=== PATIENT | female | born 1985 | race American Indian/Alaskan Native ===

== ENCOUNTER 2017-01-16 14:40 | Emergency (ER) | payer MEDICAID ==
--- NOTE | 2017-01-16 15:33 | Emergency Department Report ---
Chief Complaint: Extremity Injury, Lower Stated Complaint: LOW BACK PAIN/KNEE AND LEG PAIN Time Seen by Provider: 01/16/17 15:30 - HPI History of Present Illness: PT c/o L foot/ ankle pain (hx of club foot repair) PT also c/o mid low back pain PT denies injury or trauma. PT has a hx of scoliosis and spina bifida - ROS Review of Systems: - abd pain - irregular menstrual cycle + low back pain - Exam Physical Exam: PT c/o shar hip pain and L foot pain, she is ambulatory with steady gait. PT has scar to L medial ankle MSE screening note: Focused history and physical exam performed. Due to findings the following was ordered: labs ED Disposition for MSE Condition: Stable
[2017-01-16 16:25] LABS: Bacteria,Urine 4+ /HPF (Negative); Bilirubin,Urine NEG (Negative); Blood,Urine MOD (Negative); Ketones,Urine 20 mg/dL (Negative); Leukocyte Esterase,Urine LG (Negative); Mucus,Urine 3+ /HPF; Nitrite,Urine POS (Negative)
[2017-01-16] MEDS: MOTRIN PO ONE ×2 (18:29→18:30)
--- NOTE | 2017-01-16 20:27 | XRay Report ---
FINAL REPORT PROCEDURE: XR ANKLE 3 LT TECHNIQUE: Left ankle, three views HISTORY: LEFT ANKLE pain/swelling COMPARISON: No prior studies are available for comparison. FINDINGS: There has been fusion at the tibiotalar joint with intramedullary serenity and screws in place. Stimulator device is in place. 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 No lucency is seen surrounding the hardware. No acute fracture is seen. IMPRESSION: Postsurgical changes. No radiographic evidence of acute abnormality
--- NOTE | 2017-01-16 20:28 | XRay Report ---
FINAL REPORT PROCEDURE: XR FOOT 3 LT TECHNIQUE: Left foot, three views HISTORY: LEFT FOOT pain/swelling COMPARISON: No prior studies are available for comparison. FINDINGS: There are arthritic changes of the midfoot. No acute fracture or dislocation is seen. There is dorsal soft tissue swelling. No cortical erosions are seen. IMPRESSION: Arthritic changes. Soft tissue swelling
--- NOTE | 2017-01-16 20:31 | XRay Report ---
FINAL REPORT PROCEDURE: XR SPINE THORACIC 3V TECHNIQUE: Thoracic spine, two views HISTORY: spinal tenderess COMPARISON: No prior studies are available for comparison. FINDINGS: Minimal mid thoracic levoscoliosis. The vertebral body heights and alignment are maintained. Minimal disc space narrowing in the mid thoracic spine. IMPRESSION: No radiographic evidence of acute abnormality
--- NOTE | 2017-01-16 20:33 | XRay Report ---
FINAL REPORT PROCEDURE: XR SPINE LUMBOSACRAL 2-3V TECHNIQUE: Lumbar spine, two views HISTORY: spinal tenderess COMPARISON: No prior studies are available for comparison. FINDINGS: Linear catheter or wiring projects over the spinal canal from the level of T12 through L5. Correlate with surgical history. There is lumbar levoscoliosis. Vertebral body heights are maintained. Chronic deformities of lower lumbar vertebra are noted, not fully evaluated IMPRESSION: Chronic changes. No radiographic evidence of acute abnormality. Note that a catheter or wire projects over the spinal canal. Correlate with surgical history.
[2017-01-16 20:48] VITALS: BP 102/71
--- NOTE | 2017-01-16 22:42 | Emergency Department Report ---
Entered by ELMO JOHNSON, acting as scribe for ROMY MENA NP. ED Lower Extremity HPI - General Chief Complaint: Extremity Injury, Lower Stated Complaint: LOW BACK PAIN/KNEE AND LEG PAIN Time Seen by Provider: 01/16/17 15:30 Source: patient Mode of arrival: Ambulatory Limitations: No Limitations - History of Present Illness Initial Comments: This is a 31 y/o female, with Hx of spina bifida and scoliosis, presents with chronic lower back and left ankle pain that started last week. She notes taking a muscle relaxant with no relief. Pt denies bladder or bowel instability, dysuria, CHOI, n/v, abd pain, chest pain, SOB, numbness or tingling. Her PCP is Dr. Saman Sullivan, but she states being unable to get appt with him due to being cut off from her insurance. Pt states that Percocet helps her with the pain. No additional Sx. She stated has allergies to latex. MD Complaint: other (low back and left ankle pain) -: week(s) Injury: Ankle: Left Type of Injury: unknown Place: home Severity: mild Severity scale (0 -10): 4 Improves With: nothing Worsens With: nothing Context: other (chronic pain) Associated Symptoms: ambulatory. denies: snap/pop sensation, swelling, numbness , tingling, unable to bear weight, able to partially bear weight - Related Data Previous Rx's Medication Instructions Recorded Last Taken Type Acetaminophen [Acetaminophen TAB] 650 mg PO Q6HR PRN #15 tablet 01/16/17 Unknown Rx Allergies Allergy/AdvReac Type Severity Reaction Status Date / Time latex AdvReac Rash Verified 01/16/17 15:36 ED Review of Systems Comment: All other systems reviewed and negative Constitutional: denies: chills, fever Eyes: denies: eye pain, eye discharge, vision change ENT: denies: ear pain, throat pain Respiratory: denies: cough, shortness of breath Cardiovascular: denies: chest pain Endocrine: no symptoms reported Gastrointestinal: denies: abdominal pain, nausea, vomiting, diarrhea Genitourinary: denies: urgency, dysuria, discharge Musculoskeletal: other (left ankle, lower back and hip pain) Skin: denies: rash, lesions Neurological: denies: headache, weakness, numbness Psychiatric: denies: anxiety, depression Hematological/Lymphatic: denies: easy bleeding, easy bruising ED Past Medical Hx - Past Medical History Previous Medical History?: Yes Additional medical history: sociosis, spina bifida - Surgical History Past Surgical History?: Yes Additional Surgical History: club foot at - Social History Smoking Status: Current Every Day Smoker Substance Use Type: None - Medications Home Medications: Home Medications Medication Instructions Recorded Confirmed Last Taken Type Acetaminophen [Acetaminophen TAB] 650 mg PO Q6HR PRN #15 tablet 01/16/17 Unknown Rx ED Physical Exam - General Limitations: No Limitations General appearance: alert, in no apparent distress - Head Head exam: Present: atraumatic, normocephalic, normal inspection - Eye Eye exam: Present: normal appearance, PERRL, EOMI Pupils: Present: normal accommodation - ENT ENT exam: Present: normal exam, normal orophraynx, mucous membranes moist, TM's normal bilaterally, normal external ear exam - Neck Neck exam: Present: normal inspection, full ROM. Absent: tenderness, meningismus, lymphadenopathy, thyromegaly - Respiratory Respiratory exam: Present: normal lung sounds bilaterally. Absent: respiratory distress, wheezes, rales, rhonchi, stridor - Cardiovascular Cardiovascular Exam: Present: regular rate, normal rhythm, normal heart sounds. Absent: systolic murmur, diastolic murmur, rubs, gallop - GI/Abdominal GI/Abdominal exam: Present: soft, distended, normal bowel sounds. Absent: tenderness, guarding, rebound, rigid - Rectal Rectal exam: Present: deferred - Extremities Exam Extremities exam: Present: normal inspection, full ROM, normal capillary refill , other (left ankle pain). Absent: tenderness, pedal edema, joint swelling, calf tenderness - Back Exam Back exam: Present: normal inspection, full ROM, tenderness, paraspinal tenderness (Thoracic and lumbar tenderness), vertebral tenderness (Thoracic and lumbar tenderness). Absent: CVA tenderness (R), CVA tenderness (L), muscle spasm, rash noted - Expanded Back Exam Expanded Back exam: Absent: saddle anesthesia Back exam: Negative Straight Leg Raising: Left, Right - Neurological Exam Neurological exam: Present: alert, oriented X3, CN II-XII intact, normal gait, reflexes normal. Absent: altered, abnormal gait, motor sensory deficit - Psychiatric Psychiatric exam: Present: normal affect, normal mood - Skin Skin exam: Present: warm, dry, intact, normal color. Absent: rash ED Course Vital Signs 01/16/17 01/16/17 15:32 20:47 Temperature 98.5 F Pulse Rate 86 65 Respiratory 16 18 Rate Blood Pressure 126/82 Blood Pressure 102/71 [Left] O2 Sat by Pulse 100 98 Oximetry - Reevaluation(s) Reevaluation #1: 01/16/17 19:26 Patient is walking and smiling around with 2 children. no signs of distress noted. ED Lower Extremity MDM - Medical Decision Making Ed course: This is a 31-year-old female that presents with UTI, left ankle strain and low back strain 1- after my physical exam, a xr of lumbar, thoracic, ankle and foot has been obtained. Impression: chronic normal findings with no acute changes. Dictated by Dr. Selby/ X-ray results has been notified the patient with no further was noted by the patient 2- patient received ibuprofen 600 mg by mouth and ED but patient refused stated only Percocet will help her pain. I instructed the patient that due to the fact the patient is alone with no ride with children, I was not able to prescribe her a narcotic due to drowsiness and sedation. 3- patient received ibuprofen 600 mg by mouth at the time of discharge and was instructed tofollow-up with your primary care doctor in 3-5 days or if symptoms worsen such as bladder or bowel stability, chest pain, short of breath, numbness or tingling sensation in extremities, headache, dizziness, visual changes, nausea vomiting, or abdominal pain, upper back to emergency room as was possible. Patient refused ibuprofen. Then acetaminophen has been prescribed as d/c. 4- at time time of discharge, the patient does not seem toxic or ill in appearance. No acute signs of distress noted. Patient agrees to discharge treatment plan of care. No further questions noted by the patient. ED Disposition Clinical Impression: Left ankle strain, Lumbar strain, Strain of thoracic region Disposition: - TO HOME OR SELFCARE Is pt being admited?: No Does the pt Need Aspirin: No Condition: Stable Instructions: Ibuprofen (By mouth), Low Back Strain (ED), RICE Therapy (ED) Additional Instructions: follow-up with your primary care doctor in 3-5 days or if symptoms worsen such as bladder or bowel stability, chest pain, short of breath, numbness or tingling sensation in extremities, headache, dizziness, visual changes, nausea vomiting, or abdominal pain, upper back to emergency room as was possible. Take ibuprofen as prescribed as needed for pain. Prescriptions: Acetaminophen [Acetaminophen TAB] 650 mg PO Q6HR PRN #15 tablet PRN Reason: Pain Referrals: PRIMARY CARE, [Primary Care Provider] - 3-5 Days TRISTIN ALONZO MD [Staff Physician] - 3-5 Days [facility] [Outside] - 3-5 Days [facility] [Outside] - 3-5 Days ANA LYMAN JR, MD [Staff Physician] - 3-5 Days Forms: Work/School Release Form(ED) This documentation as recorded by the ALEX sullivan RYAN,accurately reflects the service I personally performed and the decisions made by ,ROMY MENA, B[employer].
== END 2017-01-16 21:17 | disposition left against medical advice (07) ==
LOC: ED 14:40
DX: S39.012A Strain of muscle, fascia and tendon of lower back, initial encounter (principal); S29.012A Strain of muscle and tendon of back wall of thorax, initial encounter; S96.912A Strain of unspecified muscle and tendon at ankle and foot level, left foot, initial encounter; F17.200 Nicotine dependence, unspecified, uncomplicated; Z91.040 Latex allergy status; X58.XXXA Exposure to other specified factors, initial encounter; Y93.9 Activity, unspecified; Y99.9 Unspecified external cause status; Y92.009 Unspecified place in unspecified non-institutional (private) residence as the place of occurrence of the external cause
CPT/HCPCS: 72072; 72100; 81001; 81025

== ENCOUNTER 2017-04-25 09:39 | Emergency (ER) | payer MEDICAID ==
--- NOTE | 2017-04-25 13:53 | Emergency Department Report ---
- General Chief complaint: Skin/Abscess/Foreign Body Stated complaint: RING WORM Source: patient Mode of arrival: Ambulatory Limitations: No Limitations - History of Present Illness Initial comments: 32 y/o F with no signficant pmhx presents with a ringwormm-like rash that started on the left forearm about 2 weeks ago and now has progressed to her chest area. Pt states that it becomes itchy when she sweats. Pt denies any fever, chills, oozing, pus or drainage at the site. Pt has been trying OTC lotromin with no improvement. Pt also admits to a new perfume that she started to use, but states that she has not used it in the last week, but still has noticed the rash spreading. Pt denies any SOB, resp distress, lip swelling at this time. No chance of , pt states that she had a tubal ligation. NKDA. - Related Data Previous Rx's Medication Instructions Recorded Last Taken Type Acetaminophen [Acetaminophen TAB] 650 mg PO Q6HR PRN #15 tablet 01/16/17 Unknown Rx Ketoconazole 2% [Nizoral] 1 applicatio TP QDAY #1 tube 04/25/17 Unknown Rx Allergies Allergy/AdvReac Type Severity Reaction Status Date / Time latex AdvReac Rash Verified 01/16/17 15:36 Abscess Boil HPI - HPI Chief Complaint: Skin/Abscess/Foreign Body Stated Complaint: RING WORM Duration: >1 Week Location: Upper Extremity Severity: Moderate History: No Fever, No Pain, No Purulent Drainage, No Numbness, No Foreign Body, No Previous History, No Insect Bite Home Medications: Previous Rx's Medication Instructions Recorded Last Taken Type Acetaminophen [Acetaminophen TAB] 650 mg PO Q6HR PRN #15 tablet 01/16/17 Unknown Rx Ketoconazole 2% [Nizoral] 1 applicatio TP QDAY #1 tube 04/25/17 Unknown Rx Allergies/Adverse Reactions: Allergies Allergy/AdvReac Type Severity Reaction Status Date / Time latex AdvReac Rash Verified 01/16/17 15:36 ED Review of Systems ROS: Stated complaint: RING WORM Other details as noted in HPI Constitutional: denies: chills, fever Eyes: denies: eye pain, eye discharge, vision change ENT: denies: ear pain, throat pain Respiratory: denies: cough, shortness of breath, wheezing Cardiovascular: denies: chest pain, palpitations Genitourinary: denies: urgency, dysuria, discharge Musculoskeletal: denies: back pain, joint swelling, arthralgia Skin: rash Neurological: denies: headache, weakness, paresthesias Psychiatric: denies: anxiety, depression ED Past Medical Hx - Past Medical History Additional medical history: sociosis, spina bifida - Surgical History Additional Surgical History: club foot at - Social History Smoking Status: Never Smoker Substance Use Type: None - Medications Home Medications: Home Medications Medication Instructions Recorded Confirmed Last Taken Type Acetaminophen [Acetaminophen TAB] 650 mg PO Q6HR PRN #15 tablet 01/16/17 Unknown Rx Ketoconazole 2% [Nizoral] 1 applicatio TP QDAY #1 tube 04/25/17 Unknown Rx ED Physical Exam - General Limitations: No Limitations General appearance: alert, in no apparent distress - Head Head exam: Present: atraumatic, normocephalic - Eye Eye exam: Present: normal appearance, PERRL, EOMI - ENT ENT exam: Present: normal exam, other (airway was patent, no signs of respiratory distress) - Neck Neck exam: Present: normal inspection - Respiratory Respiratory exam: Present: normal lung sounds bilaterally. Absent: respiratory distress - Cardiovascular Cardiovascular Exam: Present: regular rate, normal rhythm. Absent: systolic murmur, diastolic murmur, rubs, gallop - Back Exam Back exam: Present: normal inspection - Neurological Exam Neurological exam: Present: alert, oriented X3 - Psychiatric Psychiatric exam: Present: normal affect, normal mood - Skin Skin exam: Present: other (there are diffuse ringworms noted on the left forearm and at the chest area, no oozing pus, or drainage noted at the site) ED Course Vital Signs 04/25/17 04/25/17 09:49 14:02 Temperature 98.1 F Pulse Rate 65 74 Respiratory 16 18 Rate Blood Pressure 131/95 Blood Pressure 134/78 [Right] O2 Sat by Pulse 99 Oximetry ED Medical Decision Making - Medical Decision Making Ringworm was diagnosed on examination today. I have given her ketoconazole cream as she has already tried the lotoromin cream with no benefit. Pt has also been given a referral to a edge drummer for further evaluation if needed. Pt was discharged in no acute distress, no fever, vitals were stable, and patient was alert and oriented. Airway was patent and no signs of an allergic reaction was noted on examination. Critical care attestation.: If time is entered above; I have spent that time in minutes in the direct care of this critically ill patient, excluding procedure time. ED Disposition Clinical Impression: Ringworm of body Disposition: [id number]-01 TO HOME OR SELFCARE Is pt being admited?: No Does the pt Need Aspirin: No Condition: Stable Instructions: Ketoconazole (On the skin), Tinea Corporis (ED) Additional Instructions: Please apply daily for the next 2 weeks. If no resolution, please follow-up with the edge drummer, as the referral has been provided for you today. Please follow-up with PCP within 3-5 days. Return to the ED immediately with any acute worsening symptoms such as: chest pain, swelling, SOB. Prescriptions: Ketoconazole 2% [Nizoral] 1 applicatio TP QDAY #1 tube Referrals: PRIMARY CAREMD [Primary Care Provider] - 3-5 Days PETER KELLER MD [Staff Physician] - 3-5 Days [facility] [Outside] - 3-5 Days [facility] [Outside] - 3-5 Days Forms: Work/School Release Form(ED)
[2017-04-25 14:03] VITALS: BP 134/78
== END 2017-04-25 14:05 | disposition home or self-care (01) ==
LOC: ED 09:39
DX: B35.9 Dermatophytosis, unspecified (principal); Z91.040 Latex allergy status
CPT/HCPCS: 99282